=== PATIENT | male | born 1985 | race Caucasian/White ===

== ENCOUNTER 2022-03-14 08:30 | Outpatient (CLI) | payer SELFPAY | END 2022-03-14 08:31 | disposition home or self-care (01) | LOC: NFLDREF 03-22 11:26 | PROVIDERS: Visit Provider Physician Assistant | DX: Z31.41 Encounter for fertility testing (principal) | CPT/HCPCS: 89398 ==

== ENCOUNTER 2022-03-14 11:52 | Outpatient (CLI) | payer BC, SELFPAY | END 2022-03-14 11:53 | disposition home or self-care (01) | LOC: NFLDLAB 03-30 11:52 | PROVIDERS: Visit Provider Physician Assistant | DX: Z31.41 Encounter for fertility testing (principal) | CPT/HCPCS: 89322 ==